=== PATIENT | male | born 1985 | race Caucasian/White ===

== ENCOUNTER 2019-12-23 15:35 | Emergency (ER) | payer OTHER ==
[~2019-12-23] VITALS: Ht 165.1 cm; Wt 64.5 kg
[2019-12-23] MEDS ORDERED: PANT20TA2 (16:09)
[2019-12-23] MEDS ORDERED: traMADol 50 MG TAB PO ONE (16:15)
[2019-12-23] MEDS ORDERED: NAPROXEN 250 MG TAB PO ONE (16:15)
--- NOTE | 2019-12-23 17:15 | REPVR ---
PROCEDURE INFORMATION: Exam: US Pelvis Limited, Male Exam date and time: 12/23/2019 5:02 PM Age: 34 years old Clinical indication: Pain; Other: Groin; Additional info: R/O hernia left groin pain TECHNIQUE: Imaging protocol: Real-time pelvic ultrasound with image documentation. COMPARISON: No relevant prior studies available. FINDINGS: Soft tissues: The left groin was interrogated as was the right for comparison. Valsalva maneuvers were performed and no hernias are identified. There is an enlarged round hypoechoic mass in the left groin measuring 2 by 2.7 x 1.6 cm. There is a small fatty hilum. The cortex measures 1 cm. Vascular flow is detected within the hilum as well as within the node and there are several additional adjacent smaller nodes however they also have thickened cortices. There is a node measuring 3.3 cm in length which is morphologically normal. Vasculature: Prominent veins are seen in left inguinal canal with Valsalva maneuver. IMPRESSION: 1. No left inguinal hernia. 2. There may be a left varicocele. 3. There appear to be reactive lymph nodes in the left groin largest measuring 2.7 cm. This may be associated with cellulitis among other etiologies. Electronically signed by: Juany Stewart On 12/23/2019 17:15:16 PM
[2019-12-23] MEDS ORDERED: IBUP-1022 PO (17:26)
[2019-12-23 18:03] VITALS: BP 120/72
--- NOTE | 2019-12-24 13:57 | ED PDOC ---
Post-Departure Follow-Up certiifed letter sent to pt re formal reading of pelvis us - needs fu. if pt has pcp fax to that pcp. if no pcp refer to [facility] and fax there. Tony Ramirez MD Dec 24, 2019 13:57
== END 2019-12-23 18:04 | disposition home or self-care (01) ==
LOC: M ED 15:35
DX: S76.212A Strain of adductor muscle, fascia and tendon of left thigh, initial encounter (principal); R59.9 Enlarged lymph nodes, unspecified; X58.XXXA Exposure to other specified factors, initial encounter; Y92.9 Unspecified place or not applicable; Y93.9 Activity, unspecified; Y99.9 Unspecified external cause status

== ENCOUNTER → 2019-12-23 | Outpatient (CLI) | payer OTHER ==
[~2019-12-23] MED LIST: IBUP-1022 PO; PANT20TA2
== END ==
LOC: M LABSMTC 12:11
PROVIDERS: ATTEND Family Medicine
DX: Z11.59 Encounter for screening for other viral diseases (principal); Z20.828 Contact with and (suspected) exposure to other viral communicable diseases

== ENCOUNTER 2020-05-05 09:11 | Day surgery (SDC) | payer OTHER ==
[~2020-05-05] VITALS: Ht 165.1 cm; Wt 64.0 kg
[~2020-05-05 09:11] MED LIST changes: +OMEP-218 PO; -PANT20TA2; +PANT20TA6
[2020-05-05] MEDS ORDERED: [UNRECOGNIZED DRUG - CODE] PO (09:35)
[2020-05-05] MEDS ORDERED: GAVICHW PO (09:35)
[2020-05-05] MEDS ORDERED: NS 1,000 ML IV ONE ×2 (09:45→11:00)
[2020-05-05] MEDS ORDERED: fentaNYL 100 MCG/2 ML INJECTION (J3010) As Ordered ONE (09:48)
[2020-05-05 11:00] VITALS: BP 125/59
[2020-05-05] MEDS ORDERED: propofoL 200 MG/20 ML VIAL As Ordered ONE (11:00)
[2020-05-05] MEDS ORDERED: LIDOCAINE 2% 100MG/5ML SDV (FOR ANES.) As Ordered ONE (11:01)
--- NOTE | 2020-05-25 11:29 | ROOR ---
Patient Name: German Orlando Procedure Date: 05/05/2020 9:22 AM Date of : 1985 Age: 35 Room: [facility] Gender: Male Note Status: Finalized Procedure: Upper GI endoscopy Indications: Generalized abdominal pain, Nausea Providers: Avtar Thomason Jr, MD Referring MD: Avtar Thomason Jr, MD Requesting Provider: Medicines: Propofol per Anesthesia Complications: No immediate complications. Procedure: Pre-Anesthesia Assessment: - Prior to the procedure, a History and Physical was performed, and patient medications and allergies were reviewed. The patient is competent. The risks and benefits of the procedure and the sedation options and risks were discussed with the patient. All questions were answered and informed consent was obtained. Patient identification and proposed procedure were verified by the physician and the nurse in the pre-procedure area and in the procedure room. Mental Status Examination: alert and oriented. Airway Examination: normal oropharyngeal airway and neck mobility. Respiratory Examination: clear to auscultation. CV Examination: normal. ASA Grade Assessment: II - A patient with mild systemic disease. After reviewing the risks and benefits, the patient was deemed in satisfactory condition to undergo the procedure. The anesthesia plan was to use moderate sedation / analgesia (conscious sedation). Immediately prior to administration of medications, the patient was re-assessed for adequacy to receive sedatives. The heart rate, respiratory rate, oxygen saturations, blood pressure, adequacy of pulmonary ventilation, and response to care were monitored throughout the procedure. The physical status of the patient was re-assessed after the procedure. The Endoscope was introduced through the mouth, and advanced to the second part of duodenum. The upper GI endoscopy was accomplished without difficulty. The patient tolerated the procedure well. Findings: The upper third of the esophagus, middle third of the esophagus and lower third of the esophagus were normal. The gastroesophageal junction, cardia, gastric fundus, gastric body, gastric antrum, prepyloric region of the stomach and pylorus were normal. Biopsies were taken with a cold forceps for histology. The duodenal bulb, first portion of the duodenum and second portion of the duodenum were normal. Biopsies for histology were taken with a cold forceps for evaluation of celiac disease. Impression: - Normal upper third of esophagus, middle third of esophagus and lower third of esophagus. - Normal gastroesophageal junction, cardia, gastric fundus, gastric body, antrum, prepyloric region of the stomach and pylorus. Biopsied. - Normal duodenal bulb, first portion of the duodenum and second portion of the duodenum. Biopsied. Recommendation: - Discharge patient to home (ambulatory). - Return to my office in 2 weeks. Avtar Thomason MD Avtar Thomason Jr, MD 05/05/2020 10:08:28 AM Electronically signed by Avtar Thomason Jr, MD Number of Addenda: 0 Note Initiated On: 05/05/2020 9:22 AM Estimated Blood Loss: Estimated blood loss: none.
--- NOTE | 2020-05-25 11:29 | ROOR ---
Patient Name: German Orlando Procedure Date: 05/05/2020 9:23 AM Date of : 1985 Age: 35 Room: [facility] Gender: Male Note Status: Finalized Procedure: Colonoscopy Indications: Generalized abdominal pain Providers: Avtar Thomason Jr, MD Referring MD: Avtar Thomason Jr, MD Requesting Provider: Medicines: Propofol per Anesthesia Complications: No immediate complications. Procedure: Pre-Anesthesia Assessment: - Prior to the procedure, a History and Physical was performed, and patient medications and allergies were reviewed. The patient is competent. The risks and benefits of the procedure and the sedation options and risks were discussed with the patient. All questions were answered and informed consent was obtained. Patient identification and proposed procedure were verified by the physician and the nurse in the pre-procedure area and in the procedure room. Mental Status Examination: alert and oriented. Airway Examination: normal oropharyngeal airway and neck mobility. Respiratory Examination: clear to auscultation. CV Examination: normal. ASA Grade Assessment: II - A patient with mild systemic disease. After reviewing the risks and benefits, the patient was deemed in satisfactory condition to undergo the procedure. The anesthesia plan was to use moderate sedation / analgesia (conscious sedation). Immediately prior to administration of medications, the patient was re-assessed for adequacy to receive sedatives. The heart rate, respiratory rate, oxygen saturations, blood pressure, adequacy of pulmonary ventilation, and response to care were monitored throughout the procedure. The physical status of the patient was re-assessed after the procedure. The Colonoscope was introduced through the anus and advanced to the terminal ileum. The colonoscopy was performed without difficulty. The patient tolerated the procedure well. The quality of the bowel preparation was adequate. Findings: The ileum appeared normal. Biopsies were taken with a cold forceps for histology. The rectum, recto-sigmoid colon, sigmoid colon, descending colon, transverse colon, ascending colon, cecum, appendiceal orifice and ileocecal valve appeared normal. Biopsies for histology were taken with a cold forceps from the ascending colon, transverse colon, descending colon and sigmoid colon for evaluation of microscopic colitis. Impression: - The terminal ileum is normal. Biopsied. - The rectum, recto-sigmoid colon, sigmoid colon, descending colon, transverse colon, ascending colon, cecum, appendiceal orifice and ileocecal valve are normal. Biopsied. Recommendation: - Discharge patient to home (ambulatory). Avtar Thomason Jr, MD 05/05/2020 10:25:29 AM Number of Addenda: 0 Note Initiated On: 05/05/2020 9:23 AM Estimated Blood Loss: Estimated blood loss: none.
== END 2020-05-05 11:15 | disposition home or self-care (01) ==
LOC: M OPP 09:11
PROVIDERS: ATTEND Surgery
DX: R19.4 Change in bowel habit (principal); K63.5 Polyp of colon; K21.9 Gastro-esophageal reflux disease without esophagitis; K29.70 Gastritis, unspecified, without bleeding; R10.84 Generalized abdominal pain; R11.0 Nausea
CPT/HCPCS: 43239; 45380; 88305; J3010

== ENCOUNTER → 2021-08-21 | Outpatient (REF) | payer OTHER ==
[~2021-08-21] MED LIST changes: +GAVICHW PO; +[UNRECOGNIZED DRUG - CODE] PO
[2021-08-21 19:30] LABS: HEPATITIS B CORE ANTIBODY IGM NEGATIVE (NEGATIVE); HEPATITIS B SURFACE ANTIGEN NEGATIVE (NEGATIVE); HEPATITIS C VIRUS ABY INDEX 0.1 INDEX (<0.8)
== END ==
LOC: M LAB REF 16:37
PROVIDERS: ATTEND Registered Nurse
DX: R94.5 Abnormal results of liver function studies (principal)

== ENCOUNTER → 2022-03-21 | Outpatient (REF) | payer OTHER ==
[~2022-03-21] MED LIST changes: +OMEP-173 PO; -OMEP-218 PO
== END ==
LOC: M LAB REF 13:53
PROVIDERS: ATTEND Student in an Organized Health Care Education/Training Program
DX: R19.7 Diarrhea, unspecified (principal)